=== PATIENT | male | born 1995 | race American Indian/Alaskan Native ===

== ENCOUNTER 2023-05-11 13:24 | Emergency (ER) | payer MEDICAID ==
[2023-05-11] MEDS: Sodium Chloride 0.9% 1,000 ML IV ONE ×2 (14:01→16:11)
[2023-05-11] MEDS: Prochlorperazine 10 MG/2 ML SDV IVPUSH ONE (14:07)
[2023-05-11 14:08] LABS: BASE EXCESS VENOUS 3.8 mm/L; BICARBONATE,VENOUS 28.3 mmol/L; CARBOXYHEMOGLOBIN 1.6 % (0.0-1.6); METHEMOGLOBIN 0.8 %; O2 SATURATION VENOUS 54.9; OXYHEMOGLOBIN 53.6 %; PCO2 VENOUS 43.4 mm/Hg; PH,VENOUS 7.429 (7.350-7.450); TOTAL HEMOGLOBIN 18.8 g/dL (13.5-18.0)
[2023-05-11 14:10] LABS: BASOPHILS ABSOLUTE AUTO 0.04 K/uL (0.00-0.10); BASOPHILS PERCENT AUTO 0.3 % (0.1-1.3); EOSINOPHILS PERCENT AUTO 0.2 % (0.0-5.4); HEMATOCRIT 51.2 % (38.4-49.7); HEMOGLOBIN 17.9 g/dL (12.9-16.9); IMMATURE GRAN ABSOLUTE AUTO 0.04 K/uL (0.00-0.23); IMMATURE GRAN PERCENT AUTO 0.3 % (0.0-0.7); LYMPHOCYTES ABSOLUTE AUTO 3.54 K/uL (0.8-3.3); LYMPHOCYTES PERCENT AUTO 28.7 % (11.4-47.7); MEAN CORPUSCULAR HEMOGLOBIN 29.5 pg (31.6-35.5); MEAN CORPUSCULAR VOLUME 84.3 fL (81.4-99.0); MONOCYTES ABSOLUTE AUTO 0.86 K/uL (0.20-0.90); NEUTROPHILS ABSOLUTE AUTO 7.83 K/uL (1.0-7.6); NEUTROPHILS PERCENT AUTO 63.5 % (40.0-78.1); PLATELET COUNT,PLT 345 K/uL (130-375); PO2 VENOUS 31.6 mm/Hg; RED BLOOD CELL COUNT 6.07 M/uL (4.14-5.76); WHITE BLOOD CELL COUNT,WBC 12.3 K/uL (3.2-11.0)
[2023-05-11 14:11] LABS: EOSINOPHILS ABSOLUTE AUTO 0.02 K/uL (0.00-0.40)
[2023-05-11 14:27] LABS: APPEARANCE,URINE TURBID (CLEAR); BILIRUBIN,URINE NEGATIVE (NEGATIVE); COLOR,URINE YELLOW (YELLOW); GLUCOSE,URINE NEGATIVE (NEGATIVE); KETONES,URINE NEGATIVE (NEGATIVE); LEUKOCYTE ESTERASE,URINE NEGATIVE (NEGATIVE); NITRITE,URINE NEGATIVE (NEGATIVE); OCCULT BLOOD,URINE NEGATIVE (NEGATIVE); PH,URINE 8.5 (5.0-8.0); PROTEIN,URINE NEGATIVE (NEGATIVE)
[2023-05-11 14:31] LABS: ALANINE AMINOTRANSFERASE,ALT 38 U/L (12-78); ALBUMIN 4.5 g/dL (3.4-5.0); ALKALINE PHOSPHATASE 87 U/L (46-116); ASPARTATE AMNIOTRANSFERASE,AST 33 U/L (15-37); BLOOD UREA NITROGEN,BUN 22 mg/dL (7-18); CALCIUM 8.8 mg/dL (8.5-10.1); CARBON DIOXIDE,CO2 27 mmol/L (21-32); CHLORIDE,CL 100 mmol/L (100-108); CREATININE 1.1 mg/dL (0.8-1.3); EST CRCL DRUG DOSING (CG) 104.15 mL/min; ESTIMATED GFR 94 mL/min (>60); GLUCOSE RANDOM 105 mg/dL (74-106); POTASSIUM,K 4.3 mmol/L (3.6-5.2); PROTEIN TOTAL,TP 8.8 g/dL (6.4-8.2); SODIUM,NA 137 mmol/L (140-148)
[2023-05-11 14:36] LABS: A/G RATIO 1.1 (1.2-2.2); ANION GAP 14.3 mmol/L (5.0-14.0)
[2023-05-11 14:45] LABS: AMORPHOUS SEDIMENT,URINE MANY
[2023-05-11 14:47] LABS: BACTERIA,URINE NOT SEEN; EPITHELIAL CELLS,URINE FEW; MUCUS,URINE RARE; RBC,URINE 0-5 (0-5); WBC,URINE 0-5 (0-5)
[2023-05-11 14:49] LABS: AMPHETAMINES SCREEN, URINE NEGATIVE (NEGATIVE)
[2023-05-11 14:50] LABS: BARBITURATE SCREEN,URINE NEGATIVE (NEGATIVE); BENZODIAZEPINES SCREEN,URINE NEGATIVE (NEGATIVE); METHADONE SCREEN, URINE PRESUMPTIVE POSITIVE (NEGATIVE); METHAMPHETAMINES SCREEN, URINE NEGATIVE (NEGATIVE); OXYCODONE SCREEN,URINE NEGATIVE (NEGATIVE); PROPOXYPHENE SCREEN,URINE NEGATIVE (NEGATIVE); THC SCREEN,URINE 50 NG/ML NEGATIVE (NEGATIVE)
[2023-05-11 14:52] LABS: CORONAVIRUS COVID-19 NAA NEGATIVE (NEGATIVE); INFLUENZA A NAA NEGATIVE (NEGATIVE); INFLUENZA B NAA NEGATIVE (NEGATIVE); RESPIRATORY SYNCYTIAL VIR NAA NEGATIVE (NEGATIVE)
[2023-05-11] MEDS: LORazepam 2 MG/ML SDV IVPUSH PRN (19:33)
== END 2023-05-11 19:40 | disposition critical access hospital (66) ==
LOC: JP.ED 13:24
DX: F19.10 Other psychoactive substance abuse, uncomplicated (principal); F19.251 Other psychoactive substance dependence with psychoactive substance-induced psychotic disorder with hallucinations; E86.0 Dehydration
CPT/HCPCS: 0241U; 36415; 80053; 80305; 80307; 81001; 82803; 83605; 85025; 96361; 96374; 96375; 99285; J0780; J2060; J7030